=== PATIENT | female | born 1995 | race Caucasian/White ===

== ENCOUNTER 2022-03-25 07:57 | Inpatient (IN) | payer OTHER ==
[~2022-03-25] VITALS: Ht 162.6 cm; Wt 145.1 kg
[2022-03-25] MEDS ORDERED: MISOPROSTOL 100MCG TABLET RC PRN (10:45)
[2022-03-25] MEDS ORDERED: LIDOCAINE HCL 1% 20ML VIAL (Pyxis) INJ INFIL SCH (10:45)
[2022-03-25] MEDS ORDERED: NALOXONE HCL 0.4 MG/ML 1ML VIAL IM PRN (10:45)
[2022-03-25] MEDS ORDERED: METHYLERGONOVINE MALEATE 0.2 MG/ML IM PRN (10:45)
[2022-03-25] MEDS ORDERED: BUTORPHANOL TARTRATE 2 MG/ML VIAL IV PRN (10:45)
[2022-03-25] MEDS: LACTATED RINGERS 1,000 ML IV SCH ×3 (12:07→19:27)
[2022-03-25] MEDS ORDERED: PENICILLIN G POTASSIUM 5 MMU in DEXT 5% WATER 100 ML IV SCH (13:00)
[2022-03-25 13:03] LABS: BASOPHILS % 0.3 % (0.0-2.0); CLARITY URINE CLEAR (CLEAR); COLOR URINE YELLOW (YELLOW); EOSINOPHILS % 0.6 % (0.0-5.0); HEMATOCRIT. 36.3 % (36.0-48.0); HEMOGLOBIN. 12.1 g/dL (12.0-16.0); KETONES URINE NEGATIVE (NEGATIVE); LEUKOCYTE ESTERASE URINE 1+ (NEGATIVE); LYMPHOCYTES % 17.6 % (20.0-50.0); MEAN PLATELET VOLUME 9.8 fl (7.4-10.4); MONOCYTES % 4.3 % (2.0-8.0); NEUTROPHILS % 77.2 % (40.0-76.0); NITRITE URINE NEGATIVE (NEGATIVE); OCCULT BLOOD URINE NEGATIVE (NEGATIVE); PH URINE 6.5 (4.5-8.0); PLATELET 234 x1000/uL (130-400); PROTEIN URINE NEGATIVE (NEGATIVE); RED BLOOD CELL COUNT 4.32 mill/uL (4.2-5.4); RED CELL DISTRIBUTION WIDTH 16.9 % (11.6-14.6); SPECIFIC GRAVITY URINE 1.019 (1.005-1.030); UROBILINOGEN URINE 0.2 E.U./dL (0.2-1.0)
[2022-03-25 13:13] LABS: *AMPHETAMINES SCREEN URINE NEGATIVE (NEGATIVE); *BARBITURATES SCREEN URINE NEGATIVE (NEGATIVE); *BENZODIAZEPINES SCREEN URINE NEGATIVE (NEGATIVE); *COCAINE SCREEN URINE NEGATIVE (NEGATIVE); CANNABINOID URINE SCREEN NEGATIVE (NEGATIVE); INR 0.9; METHADONE URINE SCREEN NEGATIVE (NEGATIVE); OPIATES URINE SCREEN NEGATIVE (NEGATIVE); PHENCYCLIDINE URINE SCREEN NEGATIVE (NEGATIVE); PROTHROMBIN TIME 9.6 sec (9.6-11.0)
[2022-03-25] MEDS: OXYTOCIN 30 UNITS/500ML NS PMX 500 ML IV SCH ×2 (13:34→22:50)
[2022-03-25 14:39] LABS: HEPATITIS B SURFACE ANTIGEN NEGATIVE
[2022-03-25] MEDS ORDERED: PENICILLIN G POTASSIUM 2.5 MMU in DEXTROSE 5% WATER 50 ML IV SCH (17:00)
[2022-03-25] MEDS ORDERED: ROPIVACAINE HCL/PF EPIDURAL 200 ML EPI SCH (18:15)
[2022-03-25] MEDS ORDERED: ROPIVACAINE HCL/PF EPIDURAL 200 ML EPI ONE (21:08)
[2022-03-25] MEDS ORDERED: FENTANYL CITRATE/PF 50MCG/ML 2ML VIAL ONE (21:08)
[2022-03-25] MEDS ORDERED: PROPOFOL 200MG/20ML VIAL IV ONE ×2 (21:17→21:32)
[2022-03-25] MEDS ORDERED: OXYTOCIN 10 UNITS/ML 1ML ONE (21:18)
[2022-03-25] MEDS ORDERED: SUCCINYLCHOLINE CHLORIDE 200MG/10ML IV ONE (21:18)
[2022-03-25] MEDS ORDERED: CEFAZOLIN SODIUM 1000MG/VIAL ONE (21:32)
[2022-03-25] MEDS ORDERED: ONDANSETRON HCL 4MG/2ML INJ ONE (21:45)
[2022-03-25] MEDS ORDERED: MIDAZOLAM HCL 2 MG/2 ML VIAL ONE (21:50)
[2022-03-25] MEDS: HYDROMORPHONE HCL/PF 2MG/ML CPJ IV PRN ×4 (22:26→23:46)
[2022-03-25] MEDS ORDERED: ONDANSETRON HCL 4MG/2ML INJ IV PRN (23:30)
[2022-03-25] MEDS ORDERED: LANOLIN OINT 7GM TUBE TOP PRN (23:30)
[2022-03-25] MEDS ORDERED: RHO(D) IMMUNE GLOBULIN 300 MCG/SYR IM PRN (23:30)
[2022-03-25] MEDS ORDERED: HEMORRHOIDAL SUPP PR PRN (23:30)
[2022-03-25] MEDS ORDERED: ACETAMINOPHEN WITH CODEINE 300/30MG TABLET PO PRN (23:30)
[2022-03-25] MEDS ORDERED: DIPHENHYDRAMINE 25MG CAPSULE PO PRN (23:30)
[2022-03-25] MEDS ORDERED: IBUPROFEN 400MG TABLET PO PRN (23:30)
[2022-03-25] MEDS ORDERED: OXYTOCIN 30 UNITS/500ML NS PMX 500 ML IV SCH (23:30)
[2022-03-26] MEDS: HYDROMORPHONE HCL/PF 2MG/ML CPJ IV PRN ×2 (00:20→07:48)
[2022-03-26 02:00] VITALS: BP 120/58
[2022-03-26] MEDS: OXYTOCIN 30 UNITS/500ML NS PMX 500 ML IV SCH (05:04)
[2022-03-26 06:00] VITALS: BP 141/66
[2022-03-26 06:30] LABS: BASOPHILS % 0.2 % (0.0-2.0); EOSINOPHILS % 0.1 % (0.0-5.0); HEMATOCRIT. 34.6 % (36.0-48.0); HEMOGLOBIN. 11.5 g/dL (12.0-16.0); LYMPHOCYTES % 8.4 % (20.0-50.0); MEAN CORPUSCULAR VOLUME 84.2 fL (81.0-99.0); MEAN PLATELET VOLUME 9.8 fl (7.4-10.4); NEUTROPHILS % 88.3 % (40.0-76.0); PLATELET 196 x1000/uL (130-400); RED BLOOD CELL COUNT 4.11 mill/uL (4.2-5.4); RED CELL DISTRIBUTION WIDTH 17.1 % (11.6-14.6)
[2022-03-26] MEDS ORDERED: GLYBURIDE (06:54)
[2022-03-26] MEDS ORDERED: PREN-176 PO (06:54)
[2022-03-26] MEDS: FERROUS SULFATE 325MG TABLET PO SCH ×2 (07:30→17:30)
[2022-03-26 08:00] VITALS: BP 122/54
[2022-03-26] MEDS: LACTATED RINGERS 1,000 ML IV SCH ×2 (08:32→16:25)
[2022-03-26] MEDS: IBUPROFEN 800MG TABLET PO PRN ×2 (12:56→20:51)
[2022-03-26 16:15] VITALS: BP 122/59
[2022-03-26 20:00] VITALS: BP 118/76
[2022-03-26] MEDS: MAGNESIUM/ALUMINUM HYDROXIDE/SIMETHICONE 30ML UDC PO SCH (20:51)
[2022-03-26] MEDS: SIMETHICONE 80MG TABLET CHEW PO SCH (20:51)
[2022-03-26] MEDS: DOCUSATE SODIUM 100MG CAPSULE PO SCH (20:51)
[2022-03-27 04:00] VITALS: BP 107/66
[2022-03-27] MEDS: IBUPROFEN 800MG TABLET PO PRN ×3 (05:25→19:44)
[2022-03-27] MEDS: SIMETHICONE 80MG TABLET CHEW PO SCH ×4 (08:10→19:44)
[2022-03-27] MEDS: MAGNESIUM/ALUMINUM HYDROXIDE/SIMETHICONE 30ML UDC PO SCH ×4 (08:10→19:44)
[2022-03-27] MEDS: PRENATAL VIT/FE FUMARATE/FA TABLET PO SCH (08:10)
[2022-03-27 08:50] VITALS: BP 120/61
[2022-03-27] MEDS: FERROUS SULFATE 325MG TABLET PO SCH (12:46)
[2022-03-27 15:20] VITALS: BP 124/64
[2022-03-27] MEDS: DOCUSATE SODIUM 100MG CAPSULE PO SCH (19:44)
[2022-03-27 19:45] VITALS: BP 132/65
[2022-03-28] MEDS: IBUPROFEN 800MG TABLET PO PRN (03:11)
[2022-03-28 04:00] VITALS: BP 134/71
[2022-03-28] MEDS ORDERED: IBUP-2030 MT (08:47)
[2022-03-28] MEDS: PRENATAL VIT/FE FUMARATE/FA TABLET PO SCH (09:50)
[2022-03-28] MEDS: SIMETHICONE 80MG TABLET CHEW PO SCH (09:50)
[2022-03-28] MEDS: FERROUS SULFATE 325MG TABLET PO SCH (09:50)
== END 2022-03-28 11:00 | disposition home or self-care (01) | DRG 540 ==
LOC: 8 EST LDRP 07:57 → OBSVTOIN 07:57 → 8EST 03-26 03:32
PROVIDERS: ADMIT Obstetrics & Gynecology; ATTEND Obstetrics & Gynecology
PROC: 10D00Z1 Extraction of Products of Conception, Low, Open Approach (ICD-10-PCS; principal; 2022-03-25)
DX: O32.6XX0 Maternal care for compound presentation, not applicable or unspecified (principal); O24.429 Gestational diabetes mellitus in childbirth, unspecified control; O67.9 Intrapartum hemorrhage, unspecified; Z20.822 Contact with and (suspected) exposure to COVID-19; Z3A.39 39 weeks gestation of pregnancy; Z37.0 Single live birth
CPT/HCPCS: 36415; 76805; 76818; 80305; 81003; 82947; 85025; 86592; 86703; 86762; 86850; 86900; 87340; 87426; 99281; J0330; J0690; J1170; J2250; J2405; J2540; J2704; J2795; J3010; J7060; J7120; J2590